=== PATIENT | male | born 1965 | race Caucasian/White ===

== ENCOUNTER 2023-10-27 09:53 | Observation (INO) ==
[~2023-10-27 09:53] MED LIST: Buffered Lidocaine 1% SYRIN 1 ml INTRADERM ONE; Lactated Ringers 1000 ml BAG 1,000 ML IV SCH
[2023-10-27 11:16] LABS: ABS Basophils 0.1 10^3/uL (0.0-0.1); ABS Eosinophils 0.1 10^3/uL (0.0-0.5); ABS Lymphocytes 2.1 10^3/uL (1.0-4.8); ABS Monocytes 0.5 10^3/uL (0.0-1.1); ABS Neutrophils 3.5 10^3/uL (1.5-7.6); ABS Nucleated RBC 0.01 10^3/ul; Eosinophil % 1.6 %; Hematocrit 39.7 % (38-53); Hemoglobin 13.5 g/dL (13.2-16.3); Lymphocyte % 34.1 %; Mean Corpuscular Hemoglobin 31.2 pg (27-33); Mean Corpuscular Hgb Conc 34.1 g/dL (31-36); Mean Corpuscular Volume 91.4 fL (80-97); Mean Platelet Volume 9.5 fL (7.5-11.2); Nucleated Red Blood Cells % 0.1 %/100WBC (0.0-0.8); Platelet Count 188 10^3/uL (150-450); Red Blood Count 4.34 10^6/uL (4.06-5.63); Red Cell Distribution Width 14.5 % (12-17); White Blood Count 6.3 10^3/uL (3.6-10.2)
[2023-10-27 11:28] LABS: Creatinine, Serum 0.76 mg/dL (0.67-1.17); Potassium 3.8 mmol/L (3.5-5.0); eGFR CKD-EPI 104.2 (>60)
[2023-10-27 11:36] LABS: Activated Partial Thrombo Time 34.3 seconds (26.0-38.0); INR 1.02 (0.83-1.13)
[2023-10-27] MEDS ORDERED: Rocuronium 50 mg VIAL 10 mg/ml 5 ml VIAL (50 mg) ONE (12:08)
[2023-10-27] MEDS ORDERED: fentaNYL 100 mcg/2 ml 50 MCG/ML VIAL ONE ×2 (12:08→16:47)
[2023-10-27] MEDS ORDERED: KETAMINE HCL 10 MG/ML 20 ml VIAL (200 MG) ONE (12:08)
[2023-10-27] MEDS ORDERED: Midazolam 2 mg/2 ml VIAL 1 mg/ml 2 ml VIAL (2 mg) ONE (12:08)
[2023-10-27] MEDS ORDERED: Dexamethasone IV 4 MG/ML VIAL 1 ml VIAL ONE (12:09)
[2023-10-27] MEDS ORDERED: Propofol 10 MG/ML 20 ML BTL ONE ×2 (12:09→12:11)
[2023-10-27] MEDS ORDERED: Phenylephrine IV 10 MG/ML 1 ml VIAL ONE (12:09)
[2023-10-27] MEDS ORDERED: Lidocaine 2% PF 5 ML VIAL ONE (12:09)
[2023-10-27] MEDS ORDERED: Ondansetron 4 mg VIAL 2 MG/ML 2 ml VIAL ONE (12:09)
[2023-10-27] MEDS ORDERED: Remifentanil 2 MG VIAL ONE (12:13)
[2023-10-27] MEDS ORDERED: Levalbuterol HFA INHALER MDI ONE (12:14)
[2023-10-27] MEDS ORDERED: Lidocaine 1% VIAL 10 MG/ML 30 ML VIAL ONE (12:21)
[2023-10-27] MEDS ORDERED: Heparin 2 UNITS/ML IVPREMIX 3,000 UNIT/1,500 ML BAG IV ONE (12:21)
[2023-10-27] MEDS ORDERED: Iohexol 350 (CONTRAST) 100 ML PAK IV ONE ×2 (12:21→13:35)
[2023-10-27] MEDS ORDERED: Heparin 1,000 UNIT/ML 10 ml (10,000 UNITS) CATHLAB/DIALYSIS ONE (12:55)
[2023-10-27] MEDS ORDERED: Acetaminophen IV 1 GM/100ML 1,000 MG/100 ML BAG IV PRN (14:53)
[2023-10-27] MEDS ORDERED: Naloxone 0.4 mg VIAL 0.4 mg/ml 1 ml VIAL IV PRN (14:53)
[2023-10-27] MEDS ORDERED: Ondansetron 4 mg VIAL 2 MG/ML 2 ml VIAL IV PRN (14:53)
[2023-10-27] MEDS ORDERED: Acetaminophen IV 1 GM/100ML 1,000 MG/100 ML BAG IV ONE (16:48)
[2023-10-27] MEDS: fentaNYL 100 mcg/2 ml 50 MCG/ML VIAL IV PRN ×4 (16:50→17:05)
[2023-10-27] MEDS ORDERED: HYDROmorphone 1 MG/1 ML SYRINGE ONE (17:02)
[2023-10-27] MEDS: HYDROmorphone 1 MG/1 ML SYRINGE IV PRN ×5 (17:07→17:52)
[2023-10-27 20:03] VITALS: BP 148/74
== END 2023-10-27 21:30 | disposition home or self-care (01) ==
LOC: OR 09:53 → SSU 09:53
PROVIDERS: ADMIT Internal Medicine; ATTEND Internal Medicine